=== PATIENT | male | born 1995 | race Caucasian/White ===

== ENCOUNTER 2016-07-19 19:06 | Emergency (ER) | payer OTHER ==
[~2016-07-19] VITALS: Ht 190.5 cm; Wt 86.2 kg
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
[2016-07-19 20:30] VITALS: BP 150/88
== END 2016-07-19 20:32 ==
LOC: ERH 19:06
DX: S09.90XA Unspecified injury of head, initial encounter (principal); S06.0X9A Concussion with loss of consciousness of unspecified duration, initial encounter; R04.0 Epistaxis; Y04.8XXA Assault by other bodily force, initial encounter